=== PATIENT | male | born 1985 | race Caucasian/White ===

== ENCOUNTER 2017-10-30 21:01 | Emergency (ER) | payer OTHER ==
--- NOTE | 2017-10-30 21:49 | EDPHY ---
General Time Seen by Provider: 10/30/17 21:23 Narrative: CHIEF COMPLAINT: Right index finger laceration HISTORY OF PRESENT ILLNESS: Patient complains of right index finger laceration that occurred within the past hour. He was using a coin box inspector while working on his van when he accidentally cut his right hand. He is right-handed. This is over the radial side of the index finger spanning the PIP joint. Moderate bleeding. No numbness. No tingling. No weakness. No difficulty bending or straightening the finger. No injury elsewhere. Tetanus is up-to-date less than 2 years ago. Minimally painful at rest. Moderately with movement. No other associated complaints or modifying factors. Right-hand dominant. TIME OF INJURY: Less than 1 hr prior to arrival TETANUS STATUS: Less than 2 years MEDICAL/SURGICAL/SOCIAL HISTORY: Uncomplicated medical history. Lives independently. 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 Originally from [place] REVIEW OF SYSTEMS: Ten systems reviewed and are negative unless otherwise noted in the HPI EXAMINATION General Appearance: Alert, no distress Head: normocephalic, atraumatic Cardiovascular: Symmetric radial pulses. Brisk cap refill the right index finger. Neurological: A&O, 2 point sensory symmetric, interossei strength symmetric Skin: Warm and dry, no rash. There is a 2.5 cm laceration over the right index finger, radial side, spanning the PIP joint. Venous bleeding. No foreign body. No tendon injury. Extremities: Tenderness over the area of laceration on the right index finger. There is no laxity of the PIP joint. There is full flexion extension including superficialis and profundus of the flexor apparatus. Good signs of perfusion distal to the injury. MDM: 9:50 p.m. Acute laceration to the right index finger that is less than 2 hr old. He is neurovascular intact. No evidence of injury to the flexor apparatus. I have administered digital block. Proceed with irrigation, re-evaluation closure. 10:45 p.m. Laceration has been closed without difficulty. Excellent approximation of the wound borders. Full flexion extension postprocedure. I do not feel he warrants any empiric antibiotic coverage, nor does he wish to take any. He has wound care instructions. We discussed returning here in 7-10 days for suture removal. We discussed minimal weight-bearing of the finger until wound has healed. He is comfortable this plan and discharged home stable condition. PROCEDURE: Laceration repair Consent: Verbal Location: Right index finger Length of repair: 2.5 cm Complexity: Complex Layer involvement: Single Anesthesia: Digital block Irrigation: Extensive Debridement: None Procedure description: Following good anesthesia, the wound was copiously irrigated. Wound bed was explored with a sterile glove, and there is no foreign body noted. Wound borders were approximated well with good hemostasis. Tolerated well without complication. Suture/Staple material: 5-0 Ethilon, 6 simple ruptured sutures Wound care: Routine as discussed Suture/Staple removal: 7-10 Days PROCEDURE: Digital Block Indication: Finger laceration Consent: Verbal Location: Right index Anesthesia: Lidocaine 1% plain, 0.25% Marcaine plain, 5mL Description: Base of the finger was prepped. The above was infused without difficulty. Tolerated well. Good anesthesia. Complications: None SUPERVISION: This patient was independently evaluated without direct involvement of or examination by the attending physician. ED Precautions: Worsening pain. Erythema, edema, cyanosis, pallor, paresthesia or anesthesia. - History Smoking Status: Never smoked - Objective Vital Signs: Initial Vital Signs Temperature (C) 98.4 F 10/30/17 21:10 Heart Rate 55 L 10/30/17 21:10 Respiratory Rate 16 10/30/17 21:10 Blood Pressure 135/80 H 10/30/17 21:10 O2 Sat (%) 96 10/30/17 21:10 O2 Delivery Mode Room Air Allergies/Adverse Reactions: No Known Allergies Allergy (Verified 10/30/17 21:12) Home Medications: Medication Instructions Recorded NK [No Known Home Meds] 09/28/15 Departure - Departure Disposition: Home, Routine, Self-Care Clinical Impression: Laceration of index finger without damage to nail Qualifiers: Encounter type: initial encounter Foreign body presence: without foreign body Laterality: right Qualified Code(s): S61.210A - Laceration without foreign body of right index finger without damage to nail, initial encounter Condition: Good Instructions: Care For Your Stitches (DC), Laceration (ED) Additional Instructions: 1. Daily wound care as discussed 2. Return here in 7-10 days for suture removal Referrals: Physician,Emergency Dept, MD [Medical Doctor] - As per Instructions
[2017-10-30 22:57] VITALS: BP 128/76
== END 2017-10-30 22:54 | disposition home or self-care (01) ==
PROC: 0HQFXZZ Repair Right Hand Skin, External Approach (ICD-10-PCS; principal; 2017-10-30)
DX: S61.210A Laceration without foreign body of right index finger without damage to nail, initial encounter (principal); W26.0XXA Contact with knife, initial encounter
CPT/HCPCS: L3925